=== PATIENT | male | born 1950 | race American Indian/Alaskan Native ===

== ENCOUNTER 2018-11-03 10:00 | Day surgery (SDC) | payer MEDICARE ==
[2018-11-03] MEDS ORDERED: WATER FOR IRRIG STERILE IR ONE (10:07)
[2018-11-03] MEDS ORDERED: WATER FOR IRRIG STERILE ONE (10:07)
[2018-11-03] MEDS ORDERED: NACL 0.9% 1000 ML 1,000 ML IV SCH (11:00)
--- NOTE | 2018-11-03 11:46 | Anesthesia Day of Surgery ---
Anesthesia Day of Surgery - Day of Surgery Patient Examined: Yes Patient H&P Reviewed: Yes Patient is NPO: Yes
--- NOTE | 2018-11-03 11:46 | Anesthesia Consultation ---
Anesthesia Consult and Med Hx Date of service: 11/03/18 - Airway Anesthetic Teeth Evaluation: Poor (some broken teeth) ROM Head & Neck: Adequate Mental/Hyoid Distance: Adequate Mallampati Class: Class II Intubation Access Assessment: Probably Good - Pre-Operative Health Status ASA Pre-Surgery Classification: ASA3 Proposed Anesthetic Plan: MAC - Pulmonary Hx Smoking: Yes - Cardiovascular System Hx Hypertension: Yes Hx Coronary Artery Disease: No (high cholesterol) - Central Nervous System CVA: Yes (2008) - Endocrine Hx Renal Disease: Yes (evaluation for kidney transplant) Hx End Stage Renal Disease: Yes () - Other Systems Hx Substance Use: Yes (RECREATIONAL DRUG USE)
[2018-11-03] MEDS ORDERED: DIPRIVAN 10 MG/ML IV ONE ×2 (11:54)
[2018-11-03] MEDS ORDERED: XYLOCAINE 1% 20 mL ONE (11:54)
--- NOTE | 2018-11-03 12:31 | Operative Report ---
Operative Report Operative Report: Date: 11/03/2018 Operative Report: Date of procedure: 11/03/2018 Procedure: Esophagogastroduodenoscopy with multiple mucosal biopsies. Attending physician: César Nunez MD Vegetable Buncher: César Nunez MD Indication: Patient is a 68 year-old male who presented with a history of dyspepsia with early satiety and abnormal weight loss. Patient is aslo undergoing evaluation for kidney transplant. An upper endoscopy is done to assess patient , so that treatment may be directed based on the findings. Consent: Informed consent was obtained after advising the patient and family regarding nature of this procedure, its indications, potential benefits as well as possible complications including but not limited to bleeding perforation and adverse reaction to medication, infection as well as other cardiopulmonary complications. An informed written and verbal consent was then obtained after due opportunity was provided for questions and answers. Monitoring: Patient was monitored continuously with pulse oximetry and electrocardiographic recordings as well as blood pressure recordings. Vital sig ns remained stable throughout this procedure with no untoward events. Preoperative assessment: Patient was assessed immediately prior to this procedure for capacity to tolerate monitored anesthesia care and moderate sedation as well as general anesthesia. Patient's ASA classification is 2, Mallampati class is 2, Hyomental distance is 3. Instrument: [employer] video endoscope Medications: Propofol given intravenously in divided doses. For details please refer to anesthesia records. Description of procedure: Patient was placed in the left lateral decubitus position after achieving sedation, the endoscope was introduced into the esophagus under direct vision. It was then advanced beyond the esophagus into the stomach and then beyond the stomach into the duodenum and to the second portion of the duodenum. It was subsequently withdrawn with careful inspection of all mucosal surfaces with the following findings. Findings: Patient has an irregular Z line at 39 cm. There was a small sliding hiatal hernia seen on entry into the stomach. There was erythema and erosions in the gastric antrum amnd also the duodenal bulb. Biopsies of the antrum were obtained for histopathology. The rest of the duodenum was normal to second portion. Impression:Irregular Z line. Hiatal hernia. Mucosal changes suggestive of gastritis and duodenitis. Plan: Follow pathology report. Continue Proton pump inhibitors. Direct additional treatment based on the pathology report. There are no findings on endoscopy that preclude consideration for kidney transplantation
--- NOTE | 2018-11-03 12:32 | Discharge Summary ---
Short Stay Discharge Plan Activity: advance as tolerated Weight Bearing Status: Weight Bear as Tolerated Diet: regular Follow up with: NITZA COLON MD [Primary Care Provider] - 7 Days
[2018-11-03 13:08] VITALS: BP 161/90
--- NOTE | 2018-11-03 14:29 | Operative Report ---
Operative Report Operative Report: Date of procedure: 11/03/2017 Procedure: Colonoscopy with Hot Biopsy Polypectomy. Attending physician: César Nunez MD Glass Setter: César Nunez MD Indication: Patient is a 68-year-old male who presents for screening colonoscopy. Patient also has abnormal weight loss and is undergoing evaluation for kidney transplantation. This colonoscopy serves to evaluate patient so that treatment may be directed based on the findings. Consent: Informed consent was obtained after advising the patient and family regarding nature of this procedure, its indications, potential benefits as well as possible complications including but not limited to bleeding perforation and adverse reaction to medication, infection as well as other cardiopulmonary complications. An informed written and verbal consent was then obtained after due opportunity was provided for questions and answers. Monitoring: Patient was monitored continuously with pulse oximetry and electrocardiographic recordings as well as blood pressure recordings. Vital signs remained stable throughout this procedure with no untoward events. Preoperative assessment: Patient was assessed immediately prior to this procedure for capacity to tolerate monitored anesthesia care and moderate sedation as well as general anesthesia. Patient's ASA classification is 2, Mallampati class is 2, Hyomental distance is 3. Instrument: [employer] video colonoscope Medications: Propofol given intravenously in divided doses. For details please refer to anesthesia records. Description of procedure: Patient was placed in the left lateral decubitus position after achieving sedation, a digital rectal examination was performed following which the colonoscope was introduced into the anal verge and advanced to the cecum which was identified by the cecal valve, the appendiceal orifice, as well as by the cecal strap and direct transillumination. The colonoscope was subsequently withdrawn with careful inspection of all mucosal surfaces. Patient tolerated this procedure well and was subsequently taken to the recovery room. The following findings were noted. Findings: Patient had a diminutive flat polyp in the sigmoid colon which measured 4-5 mm. The polyp was removed by hot biopsy polypectomy and retrieved. There were 2 additional diminutive polyps in the rectum which were both removed by hot biopsy polypectomy and retrieved. The rest of the colon to the cecum was normal. On the retroflex view at the anal verge, patient had internal hemorrhoids. Impression: Diminutive Sigmoid colon polyp and rectal polyps status post hot biopsy polypectomy. Internal hemorrhoids. Plan: Follow pathology report. High-fiber diet. Repeat colonoscopy in 5 years if polyps are adenomatous.
== END 2018-11-03 10:01 | disposition home or self-care (01) ==
LOC: GIO 10:00
PROVIDERS: ATTEND Internal Medicine Gastroenterology
DX: K63.5 Polyp of colon (principal); K64.8 Other hemorrhoids; K44.9 Diaphragmatic hernia without obstruction or gangrene; K31.89 Other diseases of stomach and duodenum; R63.4 Abnormal weight loss; I12.0 Hypertensive chronic kidney disease with stage 5 chronic kidney disease or end stage renal disease; N17.9 Acute kidney failure, unspecified; N18.6 End stage renal disease; E78.00 Pure hypercholesterolemia, unspecified; Z68.23 Body mass index [BMI] 23.0-23.9, adult; Z79.82 Long term (current) use of aspirin; Z79.899 Other long term (current) drug therapy; Z99.2 Dependence on renal dialysis; Z86.73 Personal history of transient ischemic attack (TIA), and cerebral infarction without residual deficits; Z98.890 Other specified postprocedural states
CPT/HCPCS: 43239; 45384; 88305; 88342; J2704; J7030